=== PATIENT | female | born 1955 | race Caucasian/White ===

== ENCOUNTER 2017-11-03 06:20 | Day surgery (SDC) | payer OTHER ==
[~2017-11-03] VITALS: Ht 167.6 cm; Wt 83.0 kg
[~2017-11-03 06:20] MED LIST: ADULT LOW DOSE81 M1 PO; ALLEGRA ALLERG180 MG; ALLEGRA ALLERG180 MG PO; ALLEGRA180 MG; ALPRAZOLAM0.25 M2 PO; ALPRAZOLAM0.25 MG PO; ALPRAZOLAM0.5 MG PO; ATENOLOL25 MG PO; ATENOLOL50 MG PO; ATORVASTATIN CA20 MG PO; B COMPLEX #11 EACH SL; BENADRYL25 MG PO; BENTYL20 MG PO; BUPROPION XL150 MG PO; CARAFATE1 GM PO; CARDIZEM SR60 MG PO; CARTIA XT120 MG PO; CLONAZEPAM0.5 M1 PO; CLONAZEPAM0.5 MG PO; DEXILANT60 MG PO; DIAZEPAM5 MG PO; DILAUDID4 MG PO; DURAGESIC50 MCG TD; ENDOCET 5-3251 EACH PO; FENTANYL1 EAC1 TD; FEXOFENADINE H180 MG PO; FLONASE16 GM NS; FLOVENT 44120 INHALA NS; FLUOXETINE HCL40 MG PO; GABAPENTIN600 MG PO; GOLYTELY SOLU4000 ML PO; KLONOPIN0.5 M1 PO; LEXAPRO20 MG PO; LUNESTA3 MG PO; METFORMIN HCL500 MG PO; METOCLOPRAMIDE10 MG PO; MIRALAX17 GM PO; MULTIVITAMIN1 EAC1 PO; NEURONTIN600 M1; NEURONTIN600 MG PO; OXYCODONE5 MG; OXYCODONE5 MG PO; PREDNISONE5 MG PO; PROTONIX40 MG PO; PROZAC20 MG PO; RISPERDAL0.25 MG PO; SAVELLA50 MG PO; ST. JOSEPH ASPI81 MG PO; SUCRALFATE1 GM PO; TAZTIA XT120 M1 PO; TIZANIDINE HCL2 MG PO; TRAZODONE HCL50 MG PO; TYLENOL 8 HOUR650 MG PO; VICTOZA 2-0.6 MG/0.1 SC; VICTOZA0.6 MG/0.1 SC; VITAMIN A25000 UNIT PO; VITAMIN D2000 UNIT PO; VITAMIN D31000 UNIT PO; VITAMIN E400 UNIT PO; VOLTAREN75 MG PO; XANAX XR0.5 MG; XANAX0.5 MG PO; ZANTAC300 MG PO; ZOFRAN ODT4 MG PO; ZOFRAN4 MG PO
[2017-11-03 07:24] VITALS: BP 140/67
[2017-11-03 07:41] LABS: POINT-OF-CARE METER ID UU14174212
[2017-11-03] MEDS ORDERED: OXAYDO5 MG PO (14:53)
[2017-11-03 15:33] LABS: POINT-OF-CARE METER ID UU13113675
[2017-11-03 15:41] VITALS: BP 139/71
[2017-11-03 16:40] VITALS: BP 139/71
== END 2017-11-03 17:00 | disposition home or self-care (01) ==
LOC: SDC 06:20 → NUC 09:00 → SDC 09:00
PROVIDERS: Surgery
DX: C50.811 Malignant neoplasm of overlapping sites of right female breast (principal); D05.11 Intraductal carcinoma in situ of right breast; Z17.0 Estrogen receptor positive status [ER+]; E11.9 Type 2 diabetes mellitus without complications; G47.30 Sleep apnea, unspecified; Z80.3 Family history of malignant neoplasm of breast; Z79.82 Long term (current) use of aspirin; Z88.2 Allergy status to sulfonamides; Z87.891 Personal history of nicotine dependence
CPT/HCPCS: 78195; 78999; 82948; 88305; 88307; A9541; J0131; J0690; J1170; J1885; J2250; J3010; S0020

== ENCOUNTER 2017-11-15 11:29 | Day surgery (SDC) | payer OTHER ==
[~2017-11-15] VITALS: Ht 167.6 cm; Wt 84.0 kg
[~2017-11-15 11:29] MED LIST changes: +OXAYDO5 MG PO
[2017-11-15 12:15] VITALS: BP 117/79
[2017-11-15 12:29] LABS: POINT-OF-CARE METER ID UU14174212
[2017-11-15 13:32] LABS: METH RESISTANT S AUREUS PCR NEGATIVE (NEGATIVE)
[2017-11-15 13:42] LABS: PROBE CHECK PASS; SPECIMEN PROCESSING CONTROL PASS
[2017-11-15] MEDS ORDERED: DILAUDID2 MG PO (16:48)
[2017-11-15 17:40] LABS: POINT-OF-CARE METER ID UU14174212
[2017-11-15 17:42] VITALS: BP 129/68
[2017-11-15 18:11] VITALS: BP 122/68
== END 2017-11-15 18:10 | disposition home or self-care (01) ==
LOC: SDC 11:29
PROVIDERS: Surgery
PROC: 0HBT0ZZ Excision of Right Breast, Open Approach (ICD-10-PCS; principal; 2017-11-15)
DX: C50.811 Malignant neoplasm of overlapping sites of right female breast (principal); Z17.0 Estrogen receptor positive status [ER+]; I10 Essential (primary) hypertension; E78.5 Hyperlipidemia, unspecified; E11.9 Type 2 diabetes mellitus without complications; K21.9 Gastro-esophageal reflux disease without esophagitis; Z86.73 Personal history of transient ischemic attack (TIA), and cerebral infarction without residual deficits; Z87.891 Personal history of nicotine dependence; Z88.2 Allergy status to sulfonamides; Z79.82 Long term (current) use of aspirin
CPT/HCPCS: 82948; 87641; 88307; J0690; J2250; J2405; J3010; J7120; S0020